=== PATIENT | female | born 1935 | race Caucasian/White ===

== ENCOUNTER 2022-01-13 19:38 | Inpatient (IN) ==
[2022-01-13] MEDS ORDERED: *HR* Dextrose 50 % in Water (Syg) 50 ML SYRINGE ONE (22:10)
[2022-01-13] MEDS ORDERED: Acetaminophen 325 MG TABLET PO PRN (22:13)
[2022-01-13] MEDS ORDERED: Naloxone 0.4 MG/ML INJ IVP PRN (22:13)
[2022-01-13] MEDS ORDERED: Ondansetron 4 MG/2 ML VIAL IVP PRN (22:13)
[2022-01-13] MEDS ORDERED: Dextrose Gel 15 GM/37.5 ML TUBE PO PRN (22:16)
[2022-01-13] MEDS ORDERED: D5% in Water 1,000 ML IVC PRN (22:16)
[2022-01-13] MEDS: *HR* Dextrose 50 % in Water (Syg) 50 ML SYRINGE IVP PRN (22:52)
[2022-01-14] MEDS ORDERED: Furosemide 40 MG/4 ML VIAL IVP ONE (00:02)
[2022-01-14] MEDS: *HR* Dextrose 50 % in Water (Syg) 50 ML SYRINGE IVP PRN ×5 (00:12→21:18)
[2022-01-14 02:09] LABS: Basophils % 0.4 %; Eosinophils # 0.1 K/mcL (0.0-0.6); Eosinophils % 0.7 %; Hematocrit 35.6 % (35.3-44.9); Hemoglobin 11.8 g/dL (11.5-15.4); Immature Granulocytes % 0.6 % (0-4); Immature Platelets 5.8 % (1.1-6.1); Lymphocytes # 0.9 K/mcL (0.6-4.6); Mean Corpuscular HGB Conc 33.1 g/dL (31.6-35.5); Mean Corpuscular Hemoglobin 32.3 pg (28.0-33.3); Mean Corpuscular Volume 97.5 fL (83.0-100.0); Mean Platelet Volume 10.1 fL (9.4-12.4); Monocytes # 1.2 K/mcL (0.0-1.3); Monocytes % 17.4 %; Neutrophils # 4.5 K/mcL (1.6-8.9); Platelet Count 100 K/mcL (140-400); Red Blood Count 3.65 M/mcL (3.82-4.97); Red Cell Distribution Width 13.8 % (11.5-14.5); Segmented Neutrophils % 67.9 %; White Blood Count 6.7 K/mcL (4.3-11.1)
[2022-01-14 02:15] LABS: INR 1.2; Prothrombin Time 13.1 Seconds (9.4-12.1)
[2022-01-14 02:25] LABS: Uric Acid 5.9 mg/dL (2.3-7.6)
[2022-01-14 02:33] LABS: Calcium 8.6 mg/dL (8.6-10.3); Potassium 3.9 mEq/L (3.5-5.1)
[2022-01-14 03:51] LABS: Hepatitis C Virus Antibody Nonreactive (Nonreactive)
[2022-01-14 03:53] LABS: Hepatitis A Antibody IgM Nonreactive (Nonreactive)
[2022-01-14] MEDS: *HR* Enoxaparin 40 MG/0.4 ML SYRINGE SQ SCH (06:02)
[2022-01-14 06:18] LABS: Hepatitis B Surface Antigen Nonreactive (Nonreactive)
[2022-01-14 06:47] LABS: Hepatitis B Core IgM Nonreactive (Nonreactive)
[2022-01-14 11:00] LABS: Adenovirus Not Detected (Not Detect); Bordetella Pertussis Not Detected (Not Detect); Chlamydophila pneumoniae Not Detected (Not Detect); Coronavirus 229E Not Detected (Not Detect); Coronavirus HKU1 Not Detected (Not Detect); Coronavirus NL63 Not Detected (Not Detect); Coronavirus OC43 Not Detected (Not Detect); Human Metapneumovirus Not Detected (Not Detect); Human Rhinovirus/Enterovirus DETECTED (Not Detect); Influenza A Subtype 2009 H1 Not Detected (Not Detect); Influenza B Not Detected (Not Detect); Mycoplasma pneumoniae Not Detected (Not Detect); Parainfluenza Virus 1 Not Detected (Not Detect); Parainfluenza Virus 2 Not Detected (Not Detect); Parainfluenza Virus 3 Not Detected (Not Detect); Parainfluenza Virus 4 Not Detected (Not Detect); Respiratory Syncytial Virus Not Detected (Not Detect); SARS-CoV-2 Not Detected (Not Detect)
[2022-01-14] MEDS: Dextrose Gel 15 GM/37.5 ML TUBE PO PRN (13:11)
[2022-01-14] MEDS: Azithromycin 500 MG in 0.9 % Sodium Chloride 250 ML IVPB SCH (14:50)
[2022-01-14] MEDS: D5% in 0.9% NACL 1,000 ML IVC SCH (14:50)
[2022-01-14] MEDS ORDERED: Iopamidol - 370 500 ML MLS IVP ONE (17:51)
[2022-01-14 20:36] LABS: Immature Granulocytes % 0.6 % (0-4); Mean Platelet Volume 9.9 fL (9.4-12.4); Red Cell Distribution Width 13.7 % (11.5-14.5)
[2022-01-14 20:38] LABS: Basophils % 0.3 %; Eosinophils # 0.1 K/mcL (0.0-0.6); Eosinophils % 0.9 %; Hemoglobin 11.9 g/dL (11.5-15.4); Lymphocytes # 0.9 K/mcL (0.6-4.6); Lymphocytes % 14.4 %; Mean Corpuscular Hemoglobin 32.2 pg (28.0-33.3); Mean Corpuscular Volume 94.9 fL (83.0-100.0); Monocytes % 16.1 %; Neutrophils # 4.3 K/mcL (1.6-8.9); Red Blood Count 3.69 M/mcL (3.82-4.97); Segmented Neutrophils % 67.7 %; White Blood Count 6.3 K/mcL (4.3-11.1)
[2022-01-14 20:47] LABS: INR 1.2; Platelet Count 106 K/mcL (140-400); Prothrombin Time 13.2 Seconds (9.4-12.1)
[2022-01-14 21:18] LABS: Vitamin B12 > 1500 pg/mL (250-1100)
[2022-01-14 22:17] LABS: HIV-1&2 Antibody & p24 Ag Nonreactive (Nonreactive)
[2022-01-15] MEDS ORDERED: hydrOXYzine pamoate 25 MG CAPSULE PO PRN (00:55)
[2022-01-15] MEDS: Dextrose Gel 15 GM/37.5 ML TUBE PO PRN (02:10)
[2022-01-15] MEDS: *HR* Enoxaparin 40 MG/0.4 ML SYRINGE SQ SCH (05:28)
[2022-01-15] MEDS: D5% in 0.9% NACL 1,000 ML IVC SCH (05:29)
[2022-01-15 06:12] LABS: Calcium 8.7 mg/dL (8.6-10.3); Potassium 3.7 mEq/L (3.5-5.1)
[2022-01-15 08:42] LABS: Calcium 8.6 mg/dL (8.6-10.3); Potassium 3.7 mEq/L (3.5-5.1)
[2022-01-15 09:09] LABS: Basophils % 0.3 %; Eosinophils # 0.1 K/mcL (0.0-0.6); Eosinophils % 2.2 %; Hematocrit 35.2 % (35.3-44.9); Hemoglobin 11.7 g/dL (11.5-15.4); Immature Granulocytes % 0.3 % (0-4); Lymphocytes # 1.2 K/mcL (0.6-4.6); Lymphocytes % 20.1 %; Mean Corpuscular HGB Conc 33.2 g/dL (31.6-35.5); Mean Corpuscular Hemoglobin 32.1 pg (28.0-33.3); Mean Corpuscular Volume 96.7 fL (83.0-100.0); Mean Platelet Volume 9.9 fL (9.4-12.4); Monocytes # 1.1 K/mcL (0.0-1.3); Monocytes % 18.2 %; Neutrophils # 3.4 K/mcL (1.6-8.9); Platelet Count 108 K/mcL (140-400); Red Blood Count 3.64 M/mcL (3.82-4.97); Red Cell Distribution Width 13.8 % (11.5-14.5); Segmented Neutrophils % 58.9 %; White Blood Count 5.8 K/mcL (4.3-11.1)
[2022-01-15 10:22] LABS: Platelet Estimate Slight Decrease (Normal)
[2022-01-15] MEDS: *HR* Dextrose 50 % in Water (Syg) 50 ML SYRINGE IVP PRN (11:02)
[2022-01-15] MEDS ORDERED: *HR* EPINEPHrine 10 MG/10 ML MDV IVC ONE (11:20)
[2022-01-15 12:12] LABS: Albumin 3.6 g/dL (3.5-5.7); Albumin/Globulin Ratio 1.6 (1.1-2.2); Bilirubin,Direct 0.4 mg/dL (0.0-0.2); Bilirubin,Total 1.4 mg/dL (0.3-1.0); Globulin 2.2 g/dL (2.4-3.5); Total Protein 5.8 g/dL (6.4-8.9)
[2022-01-15] MEDS: Azithromycin 500 MG in 0.9 % Sodium Chloride 250 ML IVPB SCH (13:09)
[2022-01-15] MEDS: Metoprolol XL (24 HR) Succ 25 MG TAB.ER.24H PO SCH (13:09)
[2022-01-15 15:30] LABS: Protein/Creatinine Ratio,Urine 0.36 mg/mg (0.00-0.20); Sodium, Urine 16.3 mEq/L
[2022-01-15] MEDS ORDERED: ALPRAZolam 0.25 MG TABLET PO PRN (16:55)
[2022-01-15] MEDS ORDERED: ALPRAZolam 0.25 MG TABLET ONE (17:08)
[2022-01-15] MEDS ORDERED: Albumin 25% 25gram/100mL 25 GM/100 ML IV.SOLN IVPB ONE (17:28)
[2022-01-15] MEDS ORDERED: Albumin 25% 25gram/100mL 25 GM/100 ML IV.SOLN ONE (17:38)
[2022-01-15 18:27] LABS: Calcium 8.5 mg/dL (8.6-10.3); Potassium 4.1 mEq/L (3.5-5.1)
[2022-01-15] MEDS ORDERED: *HR* Digoxin 0.5 MG/2 ML AMPUL IVP STA (18:36)
[2022-01-15] MEDS ORDERED: *HR* Digoxin 0.5 MG/2 ML AMPUL ONE (18:40)
[2022-01-15 19:04] LABS: Calcium 8.3 mg/dL (8.6-10.3); Potassium 4.2 mEq/L (3.5-5.1)
[2022-01-15] MEDS ORDERED: *HR* Heparin 5,000 UNIT/ML VIAL IVP ONE (19:47)
[2022-01-15] MEDS ORDERED: *HR* Heparin 5,000 UNIT/ML VIAL IVP PRN ×2 (19:47)
[2022-01-15] MEDS ORDERED: Gadolinium Contrast Agent (WT Based) IV PRN (19:49)
[2022-01-15 20:18] LABS: ABG Base Excess -5 mEq/L (-2 to 3); ABG HCO3 22 mEq/L (21-27); ABG Oxygen Saturation 100 % (95-98); ABG PCO2 50 mmHg (35-45); ABG PH 7.26 pH Units (7.32-7.45); ABG PO2 352 mmHg (85-104); ABG TCO2 24 mEq/L (20-26)
[2022-01-15 20:28] LABS: Hematocrit 37.7 % (35.3-44.9); Immature Platelets 6.4 % (1.1-6.1); Mean Corpuscular HGB Conc 31.8 g/dL (31.6-35.5); Mean Corpuscular Hemoglobin 32.3 pg (28.0-33.3); Mean Corpuscular Volume 101.6 fL (83.0-100.0); Mean Platelet Volume 10.1 fL (9.4-12.4); Red Blood Count 3.71 M/mcL (3.82-4.97); White Blood Count 9.7 K/mcL (4.3-11.1)
[2022-01-15 20:37] LABS: INR 1.2
[2022-01-15 20:39] LABS: Heparin anti-factor XA UFH < 0.04 IU/mL (0.30-0.70)
[2022-01-15 21:15] LABS: Albumin 3.9 g/dL (3.5-5.7); Albumin/Globulin Ratio 1.8 (1.1-2.2); Bilirubin,Direct 0.4 mg/dL (0.0-0.2); Bilirubin,Indirect 0.8 mg/dL (0.0-1.0); Bilirubin,Total 1.2 mg/dL (0.3-1.0); Calcium 8.5 mg/dL (8.6-10.3); Globulin 2.2 g/dL (2.4-3.5); Magnesium 1.9 mg/dL (1.6-2.6); Potassium 4.2 mEq/L (3.5-5.1); Total Protein 6.1 g/dL (6.4-8.9)
[2022-01-15] MEDS: Heparin 25,000UNIT/250ML 1/2NS 25,000 UNIT/250 ML IV.SOLN IVC SCH ×2 (21:27→23:47)
[2022-01-15] MEDS: FentaNYL (PF) 1,000 MCG/100 ML IV.SOLN IVC SCH (21:34)
[2022-01-15] MEDS ORDERED: Artificial Tears SOLN 15 ML BOTTLE BOTH EYES PRN (22:46)
[2022-01-15 22:47] LABS: Bacteria,Urine Moderate per hpf (None-Few); Bilirubin,Urine Negative (Negative); Blood,Urine Large (Negative); Clarity,Urine Ex.Turbid (Clear); Color,Urine Yellow (Yellow); Glucose,Urine (UA) Normal (Normal); Hyaline Casts,Urine Few per lpf (None Seen); Ketones,Urine Negative (Negative); Leukocyte Esterase,Urine Moderate (Negative); Mucus,Urine Few per lpf (None-Few); Nitrite,Urine Negative (Negative); Protein,Urine >=600 mg/dL (Neg-Trace); RBC,Urine TNTC per hpf (0-3); Renal Epithelial Cells,Urine Few per hpf (None-Few); Specific Gravity,Urine > 1.030 (1.010-1.025); Squamous Epithelial Cell,Urine Few per hpf (None-Few); Transitional Epi Cells,Urine Few per hpf (None-Few); Urobilinogen,Urine Normal (Normal); WBC,Urine TNTC per hpf (0-3)
[2022-01-15 23:05] LABS: ABG Base Excess 2 mEq/L (-2 to 3); ABG HCO3 28 mEq/L (21-27); ABG Oxygen Saturation 98 % (95-98); ABG PCO2 51 mmHg (35-45); ABG PH 7.34 pH Units (7.32-7.45); ABG PO2 112 mmHg (85-104); ABG TCO2 30 mEq/L (20-26); Blood Gas VT 400 cc
[2022-01-15] MEDS ORDERED: Furosemide 40 MG/4 ML VIAL IVP ONE (23:06)
[2022-01-15 23:15] LABS: Troponin I 1.12 ng/mL (< 0.04)
[2022-01-15] MEDS ORDERED: Vancomycin 1,500 MG/265 ML IV.SOLN IVPB SCH (23:30)
[2022-01-15] MEDS: Artificial Tears SOLN 15 ML BOTTLE BOTH EYES SCH (23:45)
[2022-01-15] MEDS: Piperacillin/Tazobactam 3.375 GM in 0.9 % Sodium Chloride Mini Bag 100 ML IVPB SCH (23:46)
[2022-01-16] MEDS: Ipratropium/Albuterol Neb 3 ML IH SCH ×5 (00:11→20:51)
[2022-01-16] MEDS ORDERED: *HR* Digoxin 0.5 MG/2 ML AMPUL IVP SCH (00:38)
[2022-01-16 03:45] LABS: ABG Base Excess 4 mEq/L (-2 to 3); ABG HCO3 29 mEq/L (21-27); ABG Oxygen Saturation 95 % (95-98); ABG PCO2 41 mmHg (35-45); ABG PH 7.45 pH Units (7.32-7.45); ABG PO2 73 mmHg (85-104); ABG TCO2 30 mEq/L (20-26); Blood Gas VT 400 cc
[2022-01-16] MEDS: Artificial Tears SOLN 15 ML BOTTLE BOTH EYES SCH ×5 (03:55→20:39)
[2022-01-16 05:50] LABS: VBG Ionized Calcium 1.15 mmol/L (1.15-1.35)
[2022-01-16 05:53] LABS: Basophils % 0.3 %; Hemoglobin 10.5 g/dL (11.5-15.4)
[2022-01-16 05:55] LABS: Eosinophils % 0.7 %; Hematocrit 32.2 % (35.3-44.9); Immature Granulocytes % 0.5 % (0-4); Immature Platelets 4.3 % (1.1-6.1); Lymphocytes # 1.3 K/mcL (0.6-4.6); Lymphocytes % 21.2 %; Mean Corpuscular HGB Conc 32.6 g/dL (31.6-35.5); Mean Corpuscular Hemoglobin 31.8 pg (28.0-33.3); Mean Corpuscular Volume 97.6 fL (83.0-100.0); Mean Platelet Volume 10.1 fL (9.4-12.4); Monocytes # 0.7 K/mcL (0.0-1.3); Monocytes % 12.3 %; Red Cell Distribution Width 13.8 % (11.5-14.5); White Blood Count 5.9 K/mcL (4.3-11.1)
[2022-01-16 06:04] LABS: Neutrophils # 3.8 K/mcL (1.6-8.9); Platelet Count 89 K/mcL (140-400)
[2022-01-16 06:22] LABS: Albumin 3.3 g/dL (3.5-5.7); Albumin/Globulin Ratio 1.7 (1.1-2.2); Bilirubin,Direct 0.3 mg/dL (0.0-0.2); Bilirubin,Total 1.3 mg/dL (0.3-1.0); Calcium 8.4 mg/dL (8.6-10.3); Globulin 1.9 g/dL (2.4-3.5); Magnesium 1.7 mg/dL (1.6-2.6); Phosphorous 2.4 mg/dL (2.7-4.5); Potassium 3.5 mEq/L (3.5-5.1); Total Protein 5.2 g/dL (6.4-8.9); Troponin I 5.34 ng/mL (< 0.04)
[2022-01-16] MEDS ORDERED: Pantoprazole 40 MG VIAL ONE (06:38)
[2022-01-16] MEDS: Pantoprazole 40 MG VIAL IVP SCH (06:47)
[2022-01-16] MEDS ORDERED: Iopamidol - 370 500 ML MLS IVP ONE (07:35)
[2022-01-16 07:53] LABS: Heparin anti-factor XA UFH 0.87 IU/mL (0.30-0.70)
[2022-01-16 07:54] LABS: INR 1.2; Prothrombin Time 13.9 Seconds (9.4-12.1)
[2022-01-16] MEDS: Furosemide 40 MG/4 ML VIAL IVP SCH (08:53)
[2022-01-16] MEDS: Piperacillin/Tazobactam 3.375 GM in 0.9 % Sodium Chloride Mini Bag 100 ML IVPB SCH ×2 (08:53→16:19)
[2022-01-16] MEDS: Metoprolol XL (24 HR) Succ 25 MG TAB.ER.24H PO SCH (08:53)
[2022-01-16] MEDS: Chlorhexidine Rinse 15 ML MOUTHWASH MM SCH ×2 (08:53→20:39)
[2022-01-16 08:57] LABS: Activated Partial Thrombo Time > 360.0 Seconds (26.0-36.0)
[2022-01-16] MEDS ORDERED: Pantoprazole 40 MG VIAL IVP SCH (09:00)
[2022-01-16] MEDS ORDERED: Potassium Phosphate 44 MEQ in 0.9 % Sodium Chloride 250 ML IVPB ONE (10:45)
[2022-01-16] MEDS: Azithromycin 500 MG in 0.9 % Sodium Chloride 250 ML IVPB SCH (13:15)
[2022-01-16] MEDS: FentaNYL (PF) 1,000 MCG/100 ML IV.SOLN IVC SCH (13:17)
[2022-01-16 15:07] LABS: Hemoglobin 10.8 g/dL (11.5-15.4)
[2022-01-16 15:09] LABS: Hematocrit 33.1 % (35.3-44.9)
[2022-01-16 15:26] LABS: Calcium 8.2 mg/dL (8.6-10.3); Potassium 3.9 mEq/L (3.5-5.1)
[2022-01-16 15:35] LABS: Troponin I 3.16 ng/mL (< 0.04)
[2022-01-16] MEDS: Heparin 25,000UNIT/250ML 1/2NS 25,000 UNIT/250 ML IV.SOLN IVC SCH (19:02)
[2022-01-17] MEDS: Artificial Tears SOLN 15 ML BOTTLE BOTH EYES SCH ×7 (00:36→23:54)
[2022-01-17] MEDS: Piperacillin/Tazobactam 3.375 GM in 0.9 % Sodium Chloride Mini Bag 100 ML IVPB SCH ×4 (00:38→23:57)
[2022-01-17] MEDS: Ipratropium/Albuterol Neb 3 ML IH SCH ×4 (03:23→22:01)
[2022-01-17 03:43] LABS: VBG Ionized Calcium 1.07 mmol/L (1.15-1.35)
[2022-01-17 03:47] LABS: Basophils % 0.5 %; Eosinophils # 0.1 K/mcL (0.0-0.6); Eosinophils % 1.4 %; Hematocrit 32.1 % (35.3-44.9); Hemoglobin 10.5 g/dL (11.5-15.4); Immature Granulocytes % 0.6 % (0-4); Immature Platelets 5.1 % (1.1-6.1); Lymphocytes # 1.1 K/mcL (0.6-4.6); Mean Corpuscular HGB Conc 32.7 g/dL (31.6-35.5); Mean Corpuscular Hemoglobin 32.2 pg (28.0-33.3); Mean Corpuscular Volume 98.5 fL (83.0-100.0); Mean Platelet Volume 10.2 fL (9.4-12.4); Monocytes # 1.1 K/mcL (0.0-1.3); Monocytes % 16.4 %; Neutrophils # 4.3 K/mcL (1.6-8.9); Red Blood Count 3.26 M/mcL (3.82-4.97); Red Cell Distribution Width 14.1 % (11.5-14.5); Segmented Neutrophils % 64.1 %; White Blood Count 6.7 K/mcL (4.3-11.1)
[2022-01-17 03:49] LABS: Platelet Count 90 K/mcL (140-400)
[2022-01-17 03:51] LABS: INR 1.1; Prothrombin Time 12.6 Seconds (9.4-12.1)
[2022-01-17 03:54] LABS: Activated Partial Thrombo Time 32.7 Seconds (26.0-36.0)
[2022-01-17 04:02] LABS: Albumin 3.3 g/dL (3.5-5.7); Albumin/Globulin Ratio 1.6 (1.1-2.2); Bilirubin,Direct 0.4 mg/dL (0.0-0.2); Bilirubin,Indirect 0.9 mg/dL (0.0-1.0); Bilirubin,Total 1.3 mg/dL (0.3-1.0); Calcium 8.4 mg/dL (8.6-10.3); Globulin 2.1 g/dL (2.4-3.5); Magnesium 1.8 mg/dL (1.6-2.6); Phosphorous 4.3 mg/dL (2.7-4.5); Potassium 3.8 mEq/L (3.5-5.1); Total Protein 5.4 g/dL (6.4-8.9)
[2022-01-17 05:00] LABS: ABG Base Excess 4 mEq/L (-2 to 3); ABG HCO3 32 mEq/L (21-27); ABG Oxygen Saturation 93 % (95-98); ABG PCO2 63 mmHg (35-45); ABG PH 7.31 pH Units (7.32-7.45); ABG PO2 75 mmHg (85-104); ABG TCO2 34 mEq/L (20-26); Blood Gas Modality ASSIST CONTROL; Blood Gas VT 400 cc
[2022-01-17] MEDS: Pantoprazole 40 MG VIAL IVP SCH (05:23)
[2022-01-17] MEDS: FentaNYL (PF) 1,000 MCG/100 ML IV.SOLN IVC SCH ×2 (07:30→20:30)
[2022-01-17] MEDS: Metoprolol XL (24 HR) Succ 25 MG TAB.ER.24H PO SCH (07:34)
[2022-01-17] MEDS: Chlorhexidine Rinse 15 ML MOUTHWASH MM SCH ×2 (07:34→19:41)
[2022-01-17] MEDS: Furosemide 40 MG/4 ML VIAL IVP SCH (07:34)
[2022-01-17 09:56] LABS: ABG Base Excess 3 mEq/L (-2 to 3); ABG HCO3 31 mEq/L (21-27); ABG Oxygen Saturation 93 % (95-98); ABG PCO2 59 mmHg (35-45); ABG PH 7.32 pH Units (7.32-7.45); ABG PO2 76 mmHg (85-104); ABG TCO2 32 mEq/L (20-26); Blood Gas Modality ASSIST CONTROL
[2022-01-18 03:56] LABS: VBG Ionized Calcium 1.14 mmol/L (1.15-1.35)
[2022-01-18] MEDS: Ipratropium/Albuterol Neb 3 ML IH SCH ×5 (04:01→22:47)
[2022-01-18 04:02] LABS: Hemoglobin 9.8 g/dL (11.5-15.4); Immature Granulocytes % 0.3 % (0-4); Lymphocytes % 16.6 %
[2022-01-18 04:04] LABS: Basophils % 0.4 %; Eosinophils # 0.1 K/mcL (0.0-0.6); Eosinophils % 1.8 %; Hematocrit 29.5 % (35.3-44.9); Lymphocytes # 1.3 K/mcL (0.6-4.6); Mean Corpuscular HGB Conc 33.2 g/dL (31.6-35.5); Mean Corpuscular Hemoglobin 32.9 pg (28.0-33.3); Monocytes # 1.3 K/mcL (0.0-1.3); Red Blood Count 2.98 M/mcL (3.82-4.97); Red Cell Distribution Width 14.5 % (11.5-14.5); Segmented Neutrophils % 63.9 %; White Blood Count 7.8 K/mcL (4.3-11.1)
[2022-01-18 04:08] LABS: INR 1.2
[2022-01-18 04:11] LABS: Activated Partial Thrombo Time 33.2 Seconds (26.0-36.0)
[2022-01-18 04:14] LABS: Platelet Count 89 K/mcL (140-400)
[2022-01-18 04:23] LABS: ABG Base Excess 4 mEq/L (-2 to 3); ABG HCO3 31 mEq/L (21-27); ABG Oxygen Saturation 93 % (95-98); ABG PCO2 63 mmHg (35-45); ABG PH 7.31 pH Units (7.32-7.45); ABG PO2 76 mmHg (85-104); ABG TCO2 33 mEq/L (20-26); Blood Gas Modality ASSIST CONTROL; Blood Gas VT 400 cc
[2022-01-18] MEDS: Artificial Tears SOLN 15 ML BOTTLE BOTH EYES SCH ×5 (04:59→23:06)
[2022-01-18] MEDS: Pantoprazole 40 MG VIAL IVP SCH (05:09)
[2022-01-18 05:12] LABS: Albumin 3.3 g/dL (3.5-5.7); Albumin/Globulin Ratio 1.5 (1.1-2.2); Bilirubin,Direct 0.4 mg/dL (0.0-0.2); Bilirubin,Indirect 0.9 mg/dL (0.0-1.0); Bilirubin,Total 1.3 mg/dL (0.3-1.0); Calcium 8.5 mg/dL (8.6-10.3); Globulin 2.2 g/dL (2.4-3.5); Magnesium 1.9 mg/dL (1.6-2.6); Phosphorous 4.9 mg/dL (2.7-4.5); Potassium 3.8 mEq/L (3.5-5.1); Total Protein 5.5 g/dL (6.4-8.9)
[2022-01-18] MEDS: FentaNYL (PF) 1,000 MCG/100 ML IV.SOLN IVC SCH ×2 (06:05→15:52)
[2022-01-18] MEDS: Piperacillin/Tazobactam 3.375 GM in 0.9 % Sodium Chloride Mini Bag 100 ML IVPB SCH ×3 (07:59→23:32)
[2022-01-18] MEDS: Chlorhexidine Rinse 15 ML MOUTHWASH MM SCH ×2 (07:59→20:06)
[2022-01-18] MEDS: Metoprolol XL (24 HR) Succ 25 MG TAB.ER.24H PO SCH (08:00)
[2022-01-18] MEDS ORDERED: Heparin 1,000 UNITS/500 mL 500 ML ONE (09:44)
[2022-01-18] MEDS ORDERED: Lidocaine -MPF 1% 5 ML AMPUL ONE (10:24)
[2022-01-18] MEDS ORDERED: *HR* Rocuronium Bromide 50 MG/5 ML VIAL ONE (10:45)
[2022-01-18] MEDS ORDERED: *HR* Propofol 200 MG/20 ML VIAL IVP ONE (10:46)
[2022-01-18] MEDS ORDERED: DOBUTamine 0 MG/0 ML BAG ONE (11:53)
[2022-01-18] MEDS ORDERED: *HR* Magnesium Sulfate 1 GM/2 ML VIAL ONE (12:34)
[2022-01-18] MEDS ORDERED: *HR* FentaNYL (PF) 100 MCG/2 ML VIAL ONE ×2 (13:34→13:57)
[2022-01-18 13:58] LABS: ABG Base Excess 3 mEq/L (-2 to 3); ABG Chloride 90 mEq/L (98-107); ABG Glucose 103 mg/dL (60-95); ABG HCO3 29 mEq/L (21-27); ABG Ionized Calcium 1.13 mmol/L (1.15-1.35); ABG Oxygen Saturation 100 % (95-98); ABG PCO2 46 mmHg (35-45); ABG PO2 293 mmHg (85-104); ABG TCO2 30 mEq/L (20-26)
[2022-01-18 15:01] LABS: ABG Base Excess 2 mEq/L (-2 to 3); ABG Chloride 89 mEq/L (98-107); ABG Glucose 100 mg/dL (60-95); ABG HCO3 27 mEq/L (21-27); ABG Ionized Calcium 1.04 mmol/L (1.15-1.35); ABG Oxygen Saturation 91 % (95-98); ABG PCO2 45 mmHg (35-45); ABG PH 7.39 pH Units (7.32-7.45); ABG PO2 62 mmHg (85-104); ABG TCO2 28 mEq/L (20-26)
[2022-01-18 15:08] LABS: Immunoglobulin A 135 mg/dL (68-408); Immunoglobulin G 962 mg/dL (768-1632); Immunoglobulin M 50 mg/dL (35-263)
[2022-01-18 15:15] LABS: ANA IgG by ELISA DETECTED (None Detected)
[2022-01-18] MEDS ORDERED: *HR* Heparin 5,000 UNIT/ML VIAL IVP PRN ×2 (16:18)
[2022-01-18] MEDS ORDERED: Ondansetron 4 MG/2 ML VIAL IVP PRN (16:18)
[2022-01-18] MEDS ORDERED: D5% in Water 1,000 ML IVC PRN (16:18)
[2022-01-18] MEDS ORDERED: Acetaminophen 325 MG TABLET PO PRN (16:18)
[2022-01-18] MEDS ORDERED: Naloxone 0.4 MG/ML INJ IVP PRN (16:18)
[2022-01-18] MEDS ORDERED: hydrOXYzine pamoate 25 MG CAPSULE PO PRN (16:18)
[2022-01-18] MEDS ORDERED: Artificial Tears SOLN 15 ML BOTTLE BOTH EYES PRN (16:18)
[2022-01-18] MEDS ORDERED: Dextrose Gel 15 GM/37.5 ML TUBE PO PRN ×2 (16:18)
[2022-01-18] MEDS ORDERED: ALPRAZolam 0.25 MG TABLET PO PRN (16:18)
[2022-01-18] MEDS ORDERED: SODIUM CHLORIDE 0.9% IVPB ONE (16:28)
[2022-01-18] MEDS ORDERED: DESMOPRESSIN ACETATE IVPB ONE (16:28)
[2022-01-18 16:47] LABS: Insulin, Free 4 uIU/mL (3-25)
[2022-01-18] MEDS: Heparin 25,000UNIT/250ML 1/2NS 25,000 UNIT/250 ML IV.SOLN IVC SCH (17:16)
[2022-01-18] MEDS: Norepinephrine 4 MG/254 ML IV.SOLN IVC SCH ×2 (17:16→21:08)
[2022-01-18 17:49] LABS: Hemoglobin 8.7 g/dL (11.5-15.4)
[2022-01-18 17:51] LABS: Hematocrit 26.3 % (35.3-44.9); Immature Platelets 4.5 % (1.1-6.1); Mean Corpuscular HGB Conc 33.1 g/dL (31.6-35.5); Mean Corpuscular Hemoglobin 32.7 pg (28.0-33.3); Mean Corpuscular Volume 98.9 fL (83.0-100.0); Mean Platelet Volume 10.1 fL (9.4-12.4); Red Blood Count 2.66 M/mcL (3.82-4.97); Red Cell Distribution Width 14.5 % (11.5-14.5)
[2022-01-18] MEDS ORDERED: Ringers Solution, Lactated 500 ML IVC ONE (22:41)
[2022-01-19 00:16] LABS: ANA HEp-2 IgG IFA DETECTED (<1:80); Anti Nuclear Ab Pattern NUCLEOLAR
[2022-01-19] MEDS: Artificial Tears SOLN 15 ML BOTTLE BOTH EYES SCH ×6 (03:11→23:02)
[2022-01-19] MEDS: Ipratropium/Albuterol Neb 3 ML IH SCH ×4 (03:13→22:37)
[2022-01-19] MEDS: Norepinephrine 4 MG/254 ML IV.SOLN IVC SCH ×2 (03:50→13:30)
[2022-01-19 04:25] LABS: ABG Base Excess 2 mEq/L (-2 to 3); ABG HCO3 29 mEq/L (21-27); ABG Oxygen Saturation 92 % (95-98); ABG PCO2 61 mmHg (35-45); ABG PH 7.29 pH Units (7.32-7.45); ABG PO2 73 mmHg (85-104); ABG TCO2 31 mEq/L (20-26); Blood Gas Modality ASSIST CONTROL; Blood Gas VT 400 cc
[2022-01-19 04:47] LABS: Basophils % 0.2 %; Eosinophils % 0.4 %; Hematocrit 27.4 % (35.3-44.9); Hemoglobin 8.9 g/dL (11.5-15.4); Immature Granulocytes % 0.4 % (0-4); Lymphocytes # 1.3 K/mcL (0.6-4.6); Lymphocytes % 11.7 %; Mean Corpuscular HGB Conc 32.5 g/dL (31.6-35.5); Mean Corpuscular Hemoglobin 32.4 pg (28.0-33.3); Mean Corpuscular Volume 99.6 fL (83.0-100.0); Mean Platelet Volume 10.9 fL (9.4-12.4); Monocytes # 1.3 K/mcL (0.0-1.3); Monocytes % 11.4 %; Neutrophils # 8.4 K/mcL (1.6-8.9); Platelet Count 108 K/mcL (140-400); Red Blood Count 2.75 M/mcL (3.82-4.97); Red Cell Distribution Width 14.7 % (11.5-14.5); Segmented Neutrophils % 75.9 %; White Blood Count 11.1 K/mcL (4.3-11.1)
[2022-01-19 05:03] LABS: INR 1.1; Prothrombin Time 11.8 Seconds (9.4-12.1)
[2022-01-19 05:05] LABS: Albumin 3.1 g/dL (3.5-5.7); Albumin/Globulin Ratio 1.4 (1.1-2.2); Bilirubin,Direct 0.6 mg/dL (0.0-0.2); Bilirubin,Indirect 0.8 mg/dL (0.0-1.0); Bilirubin,Total 1.4 mg/dL (0.3-1.0); Calcium 8.6 mg/dL (8.6-10.3); Globulin 2.2 g/dL (2.4-3.5); Magnesium 1.9 mg/dL (1.6-2.6); Phosphorous 5.2 mg/dL (2.7-4.5); Potassium 3.9 mEq/L (3.5-5.1); Total Protein 5.3 g/dL (6.4-8.9)
[2022-01-19 05:06] LABS: Activated Partial Thrombo Time 31.9 Seconds (26.0-36.0)
[2022-01-19] MEDS: FentaNYL (PF) 1,000 MCG/100 ML IV.SOLN IVC SCH ×3 (05:37→16:57)
[2022-01-19] MEDS: Pantoprazole 40 MG VIAL IVP SCH (06:15)
[2022-01-19] MEDS: Chlorhexidine Rinse 15 ML MOUTHWASH MM SCH ×2 (08:16→19:32)
[2022-01-19] MEDS: Piperacillin/Tazobactam 3.375 GM in 0.9 % Sodium Chloride Mini Bag 100 ML IVPB SCH ×3 (08:17→23:02)
[2022-01-19] MEDS: Metoprolol XL (24 HR) Succ 25 MG TAB.ER.24H PO SCH (08:17)
[2022-01-19 10:54] LABS: VBG Ionized Calcium 1.12 mmol/L (1.15-1.35)
[2022-01-19] MEDS ORDERED: Amiodarone Premix 150 MG/100 ML BAG IVPB ONE ×2 (16:07→16:11)
[2022-01-19] MEDS ORDERED: Amiodarone Premix 360 MG/200 ML BAG IVC ONE ×2 (16:07→16:11)
[2022-01-19 16:15] LABS: Alpha 2 Globulin (PEP) 0.83 g/dL (0.48-1.05); Beta Globulin (PEP) 0.54 g/dL (0.48-1.10)
[2022-01-19 16:29] LABS: IFE Reflexed IFE Done
[2022-01-19 16:33] LABS: Insulin, Total 6 uIU/mL (3-25)
[2022-01-19] MEDS: Phenylephrine 20 MG in 0.9 % Sodium Chloride 250 ML IVC SCH ×3 (16:58→22:07)
[2022-01-19] MEDS: Amiodarone Premix 360 MG/200 ML BAG IVC SCH (22:07)
[2022-01-19] MEDS: Heparin 25,000UNIT/250ML 1/2NS 25,000 UNIT/250 ML IV.SOLN IVC SCH ×2 (22:30→23:21)
[2022-01-20] MEDS: Phenylephrine 20 MG in 0.9 % Sodium Chloride 250 ML IVC SCH (00:15)
[2022-01-20] MEDS: Phenylephrine 100 MG in 0.9 % Sodium Chloride 250 ML IVC SCH ×3 (02:18→21:29)
[2022-01-20] MEDS: Artificial Tears SOLN 15 ML BOTTLE BOTH EYES SCH ×5 (03:11→19:30)
[2022-01-20 03:17] LABS: VBG Ionized Calcium 1.07 mmol/L (1.15-1.35)
[2022-01-20 03:18] LABS: Basophils % 0.2 %; Eosinophils % 0.1 %; Hematocrit 25.3 % (35.3-44.9); Hemoglobin 8.3 g/dL (11.5-15.4); Immature Granulocytes % 0.7 % (0-4); Lymphocytes # 1.5 K/mcL (0.6-4.6); Lymphocytes % 11.3 %; Mean Corpuscular HGB Conc 32.8 g/dL (31.6-35.5); Mean Corpuscular Hemoglobin 32.3 pg (28.0-33.3); Mean Corpuscular Volume 98.4 fL (83.0-100.0); Mean Platelet Volume 10.3 fL (9.4-12.4); Monocytes # 1.7 K/mcL (0.0-1.3); Monocytes % 12.8 %; Neutrophils # 10.1 K/mcL (1.6-8.9); Platelet Count 105 K/mcL (140-400); Red Blood Count 2.57 M/mcL (3.82-4.97); Red Cell Distribution Width 14.8 % (11.5-14.5); Segmented Neutrophils % 74.9 %; White Blood Count 13.5 K/mcL (4.3-11.1)
[2022-01-20 03:26] LABS: INR 1.1; Prothrombin Time 12.5 Seconds (9.4-12.1)
[2022-01-20 03:35] LABS: Albumin 2.5 g/dL (3.5-5.7); Albumin/Globulin Ratio 1.3 (1.1-2.2); Bilirubin,Direct 0.4 mg/dL (0.0-0.2); Bilirubin,Indirect 0.7 mg/dL (0.0-1.0); Bilirubin,Total 1.1 mg/dL (0.3-1.0); Calcium 7.1 mg/dL (8.6-10.3); Globulin 1.9 g/dL (2.4-3.5); Magnesium 1.7 mg/dL (1.6-2.6); Phosphorous 9.5 mg/dL (2.7-4.5); Potassium 3.2 mEq/L (3.5-5.1); Total Protein 4.4 g/dL (6.4-8.9)
[2022-01-20] MEDS ORDERED: Calcium Gluconate 1gm/50mL 1 GM/50 ML BAG IVPB ONE (03:46)
[2022-01-20] MEDS: Ipratropium/Albuterol Neb 3 ML IH SCH ×4 (03:47→22:33)
[2022-01-20 04:39] LABS: ABG Base Excess 0 mEq/L (-2 to 3); ABG HCO3 25 mEq/L (21-27); ABG Oxygen Saturation 95 % (95-98); ABG PCO2 44 mmHg (35-45); ABG PH 7.36 pH Units (7.32-7.45); ABG PO2 78 mmHg (85-104); ABG TCO2 27 mEq/L (20-26); Blood Gas Modality ASSIST CONTROL; Blood Gas VT 400 cc
[2022-01-20] MEDS: FentaNYL (PF) 1,000 MCG/100 ML IV.SOLN IVC SCH ×2 (05:02→17:25)
[2022-01-20] MEDS: Pantoprazole 40 MG VIAL IVP SCH (06:39)
[2022-01-20] MEDS: Norepinephrine 4 MG/254 ML IV.SOLN IVC SCH ×2 (07:00→19:26)
[2022-01-20] MEDS: Piperacillin/Tazobactam 3.375 GM in 0.9 % Sodium Chloride Mini Bag 100 ML IVPB SCH ×2 (07:32→15:31)
[2022-01-20] MEDS: Chlorhexidine Rinse 15 ML MOUTHWASH MM SCH ×2 (07:33→19:30)
[2022-01-20] MEDS: Metoprolol XL (24 HR) Succ 25 MG TAB.ER.24H PO SCH (09:27)
[2022-01-20] MEDS: Amiodarone Premix 360 MG/200 ML BAG IVC SCH ×2 (09:49→22:19)
[2022-01-20 10:00] LABS: VBG Ionized Calcium 1.12 mmol/L (1.15-1.35)
[2022-01-20 10:09] LABS: Magnesium 2.2 mg/dL (1.6-2.6); Phosphorous 4.6 mg/dL (2.7-4.5)
[2022-01-20 10:10] LABS: Calcium 8.5 mg/dL (8.6-10.3); Potassium 3.6 mEq/L (3.5-5.1)
[2022-01-20] MEDS: Heparin 25,000UNIT/250ML 1/2NS 25,000 UNIT/250 ML IV.SOLN IVC SCH (15:43)
[2022-01-20] MEDS: Dexmedetomidine HCl 400 MCG/100 ML MLS IVC SCH (18:14)
[2022-01-21] MEDS: Piperacillin/Tazobactam 3.375 GM in 0.9 % Sodium Chloride Mini Bag 100 ML IVPB SCH ×2 (00:17→07:44)
[2022-01-21] MEDS: Artificial Tears SOLN 15 ML BOTTLE BOTH EYES SCH ×3 (00:19→07:45)
[2022-01-21] MEDS: *HR* Dextrose 50 % in Water (Syg) 50 ML SYRINGE IVP PRN ×2 (00:44→06:37)
[2022-01-21] MEDS: Phenylephrine 100 MG in 0.9 % Sodium Chloride 250 ML IVC SCH ×4 (01:26→12:26)
[2022-01-21] MEDS: Ipratropium/Albuterol Neb 3 ML IH SCH ×2 (03:33→09:51)
[2022-01-21 03:46] LABS: ABG Base Excess -11 mEq/L (-2 to 3); ABG HCO3 16 mEq/L (21-27); ABG Oxygen Saturation 100 % (95-98); ABG PCO2 41 mmHg (35-45); ABG PH 7.21 pH Units (7.32-7.45); ABG PO2 521 mmHg (85-104); ABG TCO2 18 mEq/L (20-26); Blood Gas VT 400 cc
[2022-01-21] MEDS: Norepinephrine 4 MG/254 ML IV.SOLN IVC SCH ×6 (04:37→07:39)
[2022-01-21] MEDS: Dexmedetomidine HCl 400 MCG/100 ML MLS IVC SCH ×2 (04:47→12:26)
[2022-01-21 05:01] LABS: Basophils % 0.2 %; Hemoglobin 9.4 g/dL (11.5-15.4); Mean Platelet Volume 10.9 fL (9.4-12.4); Nucleated Red Blood Cells 0.9 /100 WBC (0); Red Cell Distribution Width 15.1 % (11.5-14.5)
[2022-01-21 05:03] LABS: Hematocrit 30.9 % (35.3-44.9); Immature Granulocytes % 1.7 % (0-4); Lymphocytes # 0.6 K/mcL (0.6-4.6); Lymphocytes % 5.4 %; Mean Corpuscular HGB Conc 30.4 g/dL (31.6-35.5); Mean Corpuscular Hemoglobin 31.6 pg (28.0-33.3); Monocytes # 1.2 K/mcL (0.0-1.3); Monocytes % 10.7 %; Neutrophils # 9.5 K/mcL (1.6-8.9); Red Blood Count 2.97 M/mcL (3.82-4.97); White Blood Count 11.6 K/mcL (4.3-11.1)
[2022-01-21 05:04] LABS: Platelet Count 86 K/mcL (140-400)
[2022-01-21] MEDS: Pantoprazole 40 MG VIAL IVP SCH (05:11)
[2022-01-21] MEDS ORDERED: Vasopressin 40 UNIT in D5% in Water 100 ML IVC SCH (05:30)
[2022-01-21 05:32] LABS: Calcium 8.3 mg/dL (8.6-10.3); Potassium 5.8 mEq/L (3.5-5.1)
[2022-01-21] MEDS ORDERED: Ringers Solution, Lactated 500 ML IVC ONE (06:29)
[2022-01-21] MEDS ORDERED: Ringers Solution, Lactated 1,000 ML ONE (06:32)
[2022-01-21 07:11] VITALS: TEMP 97.5
[2022-01-21] MEDS: FentaNYL (PF) 1,000 MCG/100 ML IV.SOLN IVC SCH (07:15)
[2022-01-21] MEDS: Metoprolol XL (24 HR) Succ 25 MG TAB.ER.24H PO SCH (07:28)
[2022-01-21] MEDS: Calcium Gluconate 1gm/50mL 1 GM/50 ML BAG IVPB SCH ×2 (07:44→08:24)
[2022-01-21] MEDS: Chlorhexidine Rinse 15 ML MOUTHWASH MM SCH (07:44)
[2022-01-21] MEDS: Heparin 25,000UNIT/250ML 1/2NS 25,000 UNIT/250 ML IV.SOLN IVC SCH (07:45)
[2022-01-21] MEDS: Norepinephrine 32 MG/250 ML IV.SOLN IVC SCH ×2 (08:00→12:27)
[2022-01-21] MEDS ORDERED: Hydrocortisone Sodium Succ 100 MG/2 ML VIAL IVP SCH (08:00)
[2022-01-21] MEDS ORDERED: Albumin 25% 25gram/100mL 25 GM/100 ML IV.SOLN IVPB SCH (08:00)
[2022-01-21 08:09] LABS: Thyroid Stimulating Hormone 0.564 mcIU/mL (0.340-5.600)
[2022-01-21 08:11] LABS: Triiodothyronine (T3) Free 1.89 pg/mL (2.50-3.90)
[2022-01-21] MEDS ORDERED: Sodium Bicarbonate 150 MEQ in D5% in Water 1,000 ML IVC SCH (09:30)
[2022-01-21] MEDS: Amiodarone Premix 360 MG/200 ML BAG IVC SCH (09:35)
[2022-01-21 11:17] VITALS: O2SAT 99
[2022-01-21 12:06] VITALS: BP 57/42; PULSE 73
[2022-01-21] MEDS ORDERED: *HR* LORazepam 2 MG/ML VIAL IVP PRN (12:25)
[2022-01-21] MEDS ORDERED: *HR* LORazepam 2 MG/ML VIAL IVP ONE (12:25)
[2022-01-21] MEDS ORDERED: Scopolamine Patch 1.5 MG PATCH.TD72 TD SCH (12:30)
[2022-01-21] MEDS ORDERED: Piperacillin/Tazobactam 3.375 GM in 0.9 % Sodium Chloride Mini Bag 100 ML IVPB SCH (20:00)
[2022-01-22 16:48] LABS: APTT (LE Anticoag) 58 sec (32-48); Diluted Russell Viper Venom 30 sec (33-44); LE Coag APTT Mixing 45 sec (32-48); PT (LE-Anticoag) 15.9 sec (12.0-15.5); Thrombin Time 17.1 sec (14.7-19.5)
== END 2022-01-21 14:57 | disposition expired | DRG 853 ==
LOC: 2NNU → SUATTDRO 21:57 → ICNU 01-15 21:26
PROVIDERS: ADMIT Internal Medicine; ATTEND Internal Medicine